=== PATIENT | male | born 1955 | race Caucasian/White ===

== ENCOUNTER 2018-03-31 19:02 | Emergency (ER) | payer OTHER ==
--- NOTE | 2018-03-31 19:46 | ER Document Report ---
ED Medical Screen (RME) - General Chief Complaint: High Blood Pressure Stated Complaint: BLOOD PRESSURE ISSUES Time Seen by Provider: 03/31/18 19:43 Primary Care Provider: ALECIA SHOOK DO [Primary Care Provider] - Follow up as needed Mode of Arrival: Ambulatory Information source: Patient Notes: This is a 62-year-old man with no active medical problems and is on no medicines. Patient states he was having sex last night at 11 PM when he felt "like his head was going to explode". Patient took some ibuprofen's at the time and that improved the headache but it never went away. Patient awoke with a mild headache and it gradually worsened throughout the day. He works in [employer] and took his blood pressure and it was elevated. He states he thinks it has been elevated for the last few months. He denies any chest pain, shortness of breath. TRAVEL OUTSIDE OF THE [place] IN LAST 30 DAYS: No - Related Data Allergies/Adverse Reactions: No Known Allergies Allergy (Verified 11/04/15 14:41) Past Medical History - Past Medical History Cardiac Medical History: Denies: Hx Coronary Artery Disease, Hx Heart Attack, Hx Hypertension Pulmonary Medical History: Denies: Hx Asthma, Hx Bronchitis, Hx COPD, Hx Pneumonia Neurological Medical History: Denies: Hx Cerebrovascular Accident, Hx Seizures Musculoskeltal Medical History: Denies Hx Arthritis, Denies Hx Fibromyalgia, Denies Hx Muscular Dystrophy Traumatic Medical History: Reports: Hx Fractures - left hand small finger yrs ago Past Surgical History: Reports: Hx Tonsillectomy. Denies: Hx Appendectomy, Hx Bowel Surgery, Hx Cholecystectomy, Hx Coronary Artery Bypass Graft, Hx Gastric Bypass Surgery, Hx Herniorrhaphy, Hx Pacemaker - Immunizations Hx Diphtheria, Pertussis, Tetanus Vaccination: Yes Physical Exam - Vital signs Vitals: Temp Pulse Resp BP Pulse Ox 98.6 F 79 17 172/94 H 100 03/31/18 19:09 03/31/18 19:09 03/31/18 19:09 03/31/18 19:09 03/31/18 19:09 Course - Vital Signs Vital signs: Temp Pulse Resp BP Pulse Ox 98.6 F 79 17 172/94 H 100 03/31/18 19:09 03/31/18 19:09 03/31/18 19:09 03/31/18 19:09 03/31/18 19:09 Doctor's Discharge - Discharge Referrals: ALECIA SHOOK DO [Primary Care Provider] - Follow up as needed
[2018-03-31 20:12] LABS: ABSOLUTE EOSINOPHILS # (AUTO) 0.2 10^3/uL (0.0-0.6); ABSOLUTE LYMPHOCYTES (AUTO) 1.5 10^3/uL (0.5-4.7); ABSOLUTE MONOCYTES (AUTO) 0.7 10^3/uL (0.1-1.4); ABSOLUTE NEUT (AUTO) 4.6 10^3/uL (1.7-8.2); BASOPHILS % (AUTO) 0.7 % (0-2); EOSINOPHILS % (AUTO) 2.2 % (0-6); HEMATOCRIT 44.1 % (37.9-51.0); HEMOGLOBIN 15.6 g/dL (13.5-17.0); LYMPHOCYTES % (AUTO) 21.2 % (13-45); MEAN CORPUSCULAR HEMOGLOBIN 29.4 pg (27.0-33.4); MEAN CORPUSCULAR HGB CONC 35.4 g/dL (32.0-36.0); MEAN CORPUSCULAR VOLUME 83 fl (80-97); PLATELET COUNT 263 10^3/uL (150-450); RED BLOOD COUNT 5.31 10^6/uL (4.35-5.55); RED CELL DISTRIBUTION WIDTH 15.1 % (11.5-14.0); SEGMENTED NEUTROPHILS % (AUTO) 65.9 % (42-78); TOTAL CELLS COUNTED % (AUTO) 100 %
[2018-03-31 20:15] LABS: APPEARANCE,URINE CLEAR; BILIRUBIN,URINE NEGATIVE (NEGATIVE); COLOR,URINE YELLOW; GLUCOSE, URINE NEGATIVE (NEGATIVE); KETONES,URINE NEGATIVE (NEGATIVE); LEUKOCYTE ESTERASE,URINE NEGATIVE (NEGATIVE); NITRITE,URINE NEGATIVE (NEGATIVE); PROTEIN,URINE NEGATIVE (NEGATIVE); URINE SPECIFIC GRAVITY 1.011; UROBILINOGEN,URINE NEGATIVE mg/dL (<2.0)
[2018-03-31 20:30] LABS: ALANINE AMINOTRANSFERASE 23 U/L (21-72); ALBUMIN 4.9 g/dL (3.5-5.0); ALKALINE PHOSPHATASE 61 U/L (38-126); ANION GAP 12 (5-19); ASPARTATE AMINO TRANSFERASE 21 U/L (17-59); BILIRUBIN,DIRECT 0.3 mg/dL (0.0-0.4); BILIRUBIN,TOTAL 1.1 mg/dL (0.2-1.3); BLOOD UREA NITROGEN 15 mg/dL (7-20); CALCIUM 9.7 mg/dL (8.4-10.2); CARBON DIOXIDE 29 mmol/L (22-30); CHLORIDE 102 mmol/L (98-107); GLUCOSE 86 mg/dL (75-110); SODIUM 142.8 mmol/L (137-145); TOTAL PROTEIN 7.3 g/dL (6.3-8.2)
[2018-03-31 20:36] LABS: INTERNATIONAL RATION (INR) 1.07; PROTHROMBIN TIME 14.4 SEC (11.4-15.4)
[2018-03-31] MEDS ORDERED: KETOROLAC TROMETHAMINE 60 MG/2 ML SDV IM ONE (20:46)
[2018-03-31] MEDS ORDERED: METHOCARBAMOL 750 MG TABLET PO ONE (20:46)
--- NOTE | 2018-03-31 20:51 | RADIOLOGY REPORT (SQ) ---
CT HEAD WITHOUT IV CONTRAST HISTORY: Headache. COMPARISON: None. TECHNIQUE: CT scan of the brain without IV contrast. This exam was performed according to our departmental dose-optimization program, which includes automated exposure control, adjustment of the mA and/or kV according to patient size and/or use of iterative reconstruction technique. FINDINGS: The ventricles, cisterns, and sulci are unremarkable. No focal white matter lesions are seen. No evidence of acute infarction, intracranial hemorrhage, extra-axial fluid collection, or midline shift. No air-fluid levels are seen in the paranasal sinuses to suggest acute sinusitis. No depressed skull fracture. IMPRESSION: No acute intracranial findings.
--- NOTE | 2018-03-31 21:57 | ER Document Report ---
ED General - General Chief Complaint: High Blood Pressure Stated Complaint: BLOOD PRESSURE ISSUES Time Seen by Provider: 03/31/18 19:43 Primary Care Provider: ALECIA SHOOK DO [Primary Care Provider] - Follow up as needed Mode of Arrival: Ambulatory TRAVEL OUTSIDE OF THE [place] IN LAST 30 DAYS: No - HPI Notes: Patient presents to the emergency department for evaluation. He states that he has had elevated blood pressures over the last month. He has been taking them at work. His numbers have been in the 140s-150s, diastolic mainly in the 90s- 100s. He comes in today primarily because he was worried about a headache that he had last night with associated high blood pressure. He had sexual relations with his girlfriend and had a significant headache, which worsened until climax. Following that it did feel improved but he continues to have a headache. It is not the worst headache of his life at this time. Denies any associated visual changes. No difficulty seeing, speaking, swallowing. Moving arms and legs without difficulty. - Related Data Allergies/Adverse Reactions: No Known Allergies Allergy (Verified 11/04/15 14:41) Past Medical History - General Information source: Patient - Social History Smoking Status: Former Smoker Chew tobacco use (# tins/day): No Frequency of alcohol use: Rare Drug Abuse: None Family History: Reviewed & Not Pertinent Patient has suicidal ideation: No Patient has homicidal ideation: No - Past Medical History Cardiac Medical History: Denies: Hx Coronary Artery Disease, Hx Heart Attack, Hx Hypertension Pulmonary Medical History: Denies: Hx Asthma, Hx Bronchitis, Hx COPD, Hx Pneumonia Neurological Medical History: Denies: Hx Cerebrovascular Accident, Hx Seizures Renal/ Medical History: Denies: Hx Peritoneal Dialysis Musculoskeletal Medical History: Denies Hx Arthritis, Denies Hx Fibromyalgia, Denies Hx Muscular Dystrophy Traumatic Medical History: Reports: Hx Fractures - left hand small finger yrs ago Past Surgical History: Reports: Hx Abdominal Surgery - colon resection, Hx Orthopedic Surgery - cervical fusion, Hx Tonsillectomy. Denies: Hx Appendectomy, Hx Bowel Surgery, Hx Cholecystectomy, Hx Coronary Artery Bypass Graft, Hx Gastric Bypass Surgery, Hx Herniorrhaphy, Hx Pacemaker - Immunizations Hx Diphtheria, Pertussis, Tetanus Vaccination: Yes Review of Systems - Review of Systems Constitutional: No symptoms reported EENT: No symptoms reported Cardiovascular: No symptoms reported Respiratory: No symptoms reported Gastrointestinal: No symptoms reported Genitourinary: No symptoms reported Male Genitourinary: No symptoms reported Musculoskeletal: No symptoms reported Skin: No symptoms reported Neurological/Psychological: No symptoms reported Physical Exam - Vital signs Vitals: Temp Pulse Resp BP Pulse Ox 98.6 F 79 17 172/94 H 100 03/31/18 19:09 03/31/18 19:09 03/31/18 19:09 03/31/18 19:09 03/31/18 19:09 Interpretation: Hypertensive Notes: Otherwise noted as charted. - Notes Notes: Vital signs reviewed, please refer to chart. Patient is normocephalic, atra umatic. Pupils equal round, reactive to light. Examination of the neck yields tension associated at the base of the occiput, particularly on the left. No meningismal signs. Heart is regular rate and rhythm. Lungs are clear to auscultation bilaterally. Abdomen is soft, nontender, normoactive bowel sounds throughout. Extremities without cyanosis, clubbing, edema. Peripheral pulses are equal. Skin is warm and dry. Patient is awake, alert, oriented x3. Cranial nerves II through XII are grossly intact without focal neurological deficits. Strength is plus 5 out of 5 bilateral upper and lower extremities. Reflexes are symmetrical, sensation is intact, gait within normal limits. Course - Re-evaluation Re-evalutation: 03/31/18 21:54 Patient presents to the emergency department for evaluation of headache and elevated blood pressure. His blood pressure was elevated here but not to an urgency or emergency standpoint. He has no signs of endorgan damage. He does have a mild headache but it seems to be tension in nature. It is reproducible at the base of the occiput on the left. He has tension over bilateral temporal regions. He is medicated here with Toradol, Robaxin with significant improvement. We did discuss at length the need for likely blood pressure management as an outpatient. He states he will get an appointment with his primary care physician this week. He understands if he develops worsening or new concerning symptoms of any sort he needs to return immediately to the emergency department for evaluation. - Vital Signs Vital signs: Temp Pulse Resp BP Pulse Ox 98.6 F 79 17 172/94 H 100 03/31/18 19:09 03/31/18 19:09 03/31/18 19:09 03/31/18 19:09 03/31/18 19:09 - Laboratory Result Diagrams: 03/31/18 20:00 03/31/18 20:00 Laboratory results interpreted by me: 03/31/18 20:00 RDW 15.1 H - Diagnostic Test Radiology reviewed: Reports reviewed - CT head negative - EKG Interpretation by Me Additional EKG results interpreted by me: EKG reveals sinus mechanism with a rate of 71 bpm. Normal axis and intervals, no acute ST changes concerning for ischemia or infarction. Discharge - Discharge Clinical Impression: Tension headache, Hypertension Disposition: HOME, SELF-CARE Instructions: High Blood Pressure ([facility]), Tension Headache ([facility]) Additional Instructions: Take Robaxin as needed for headache. See your doctor this week. You should discuss the addition of antihypertensive medications. If you develop worsening or new concerning symptoms of any sort return to the emergency department for reevaluation. Referrals: ALECIA SHOOK DO [Primary Care Provider] - Follow up as needed
[2018-03-31 22:42] VITALS: BP 149/95
--- NOTE | 2018-04-01 08:37 | EKG REPORT ---
SEVERITY:- NORMAL ECG - SINUS RHYTHM : Confirmed by: Antonina Melendez MD 01-Apr-2018 08:36:48
== END 2018-03-31 22:43 | disposition home or self-care (01) ==
LOC: ER 19:02
DX: I10 Essential (primary) hypertension (principal); G44.209 Tension-type headache, unspecified, not intractable; Z87.891 Personal history of nicotine dependence
CPT/HCPCS: 93005; 99284; 96372; 36415; 85025; 85610; 80053; 81001; 84484; 70450; 93010; J1885; J3490